=== PATIENT | male | born 1970 | race Caucasian/White ===

== ENCOUNTER → 2018-06-19 15:56 | Outpatient (CLI) | payer OTHER, SELFPAY | PROVIDERS: Family Provider Internal Medicine; PCP Internal Medicine; Visit Provider Otolaryngology | DX: H91.90 Unspecified hearing loss, unspecified ear (principal) | CPT/HCPCS: 70030; 70553; A9585 ==

== ENCOUNTER 2021-11-24 16:58 | Outpatient (CLI) | payer OTHER, SELFPAY ==
[2021-11-24 17:09] VITALS: BP 131/83; PULSE 76; RESP 16; TEMP 36.6; O2SAT 96; BMI 28.1
[2021-11-24] MEDS: 0.9% Saline Lock 10 ML Syringe IV (17:19)
[2021-11-24 17:51] VITALS: BP 122/78; PULSE 72; RESP 16; TEMP 36.8; O2SAT 98
[2021-11-24 18:39] VITALS: BP 118/74; PULSE 70; RESP 16; TEMP 36.5; O2SAT 98
== END 2021-11-24 23:59 | disposition home or self-care (01) ==
LOC: MS3OUT 16:59 → MS3 17:00
PROVIDERS: PCP Internal Medicine; Referring Provider Nurse Practitioner Adult Health; Visit Provider Nurse Practitioner Adult Health
DX: U07.1 COVID-19 (principal)
CPT/HCPCS: J7050; M0247; A4216; Q0247

== ENCOUNTER → 2025-09-02 | Outpatient (CLI) | payer OTHER, SELFPAY | END | disposition home or self-care (01) | LOC: LAB 14:46 | PROVIDERS: PCP Internal Medicine; Referring Provider Internal Medicine; Visit Provider Internal Medicine | DX: B34.9 Viral infection, unspecified (principal) | CPT/HCPCS: 87631 ==